=== PATIENT | female | born 1985 | race Caucasian/White ===

== ENCOUNTER 2017-12-04 17:46 | Emergency (ER) | payer BC ==
[~2017-12-04] VITALS: Ht 172.7 cm; Wt 57.0 kg
[2017-12-04 18:31] LABS: CLARITY,URINE SLIGHTLY CLOUDY (Clear); COLOR,URINE STRAW (Yellow); GLUCOSE, URINE NEGATIVE (Neg); KETONES,URINE NEGATIVE (Neg); LEUKOCYTE ESTERASE ,URINE TRACE (Neg); NITRITES, URINE NEGATIVE (Neg); OCCULT BLOOD,URINE TRACE-INTACT (Neg); PROTEIN,URINE NEGATIVE (Neg); UROBILINOGEN,URINE 0.2 E.U/dL (0.2-1.0)
[2017-12-04 18:32] LABS: UA COLLECTION TYPE CLN CATCH MIDSTREAM
[2017-12-04 18:35] LABS: URINE HCG NEGATIVE (NEG)
[2017-12-04 18:39] LABS: BACTERIA,URINE FEW /HPF (Neg); RBC,URINE 0-2 /HPF (0-2); SQUAMOUS EPITHELIAL CELL,UR FEW /LPF (FEW); WBC,URINE 0-4 /HPF (0-4)
[2017-12-04] MEDS ORDERED: IBUP-1985 PO (22:24)
[2017-12-04 22:33] VITALS: BP 102/62
== END 2017-12-04 22:37 | disposition home or self-care (01) ==
LOC: ER 17:47
DX: N83.201 Unspecified ovarian cyst, right side (principal); Z79.899 Other long term (current) drug therapy
CPT/HCPCS: 76856; 81001; 81025; 87088; 87210; 99285